=== PATIENT | female | born 2005 | race Caucasian/White ===

== ENCOUNTER → 2025-09-07 | Outpatient (CLI) | payer BC, SELFPAY ==
[2025-09-07 17:56] LABS: HCG,Qualitative Serum Negative
[2025-09-07 21:38] LABS: Alanine Aminotransferase 20 U/L (10-49); Albumin, Serum 5.3 gm/dL (3.5-5.0); Alkaline Phosphatase 59 U/L (46-116); Aspartate Amino Transferase 26 U/L (0-34); Bilirubin,Direct 0.2 mg/dL (0.0-0.3); Bilirubin,Total 0.7 mg/dL (0.3-1.2); Cardiac Risk Estimate 2.5 RATIO (3.7-5.6); Cholesterol 185 mg/dL (132-200); HDL Cholesterol 75 mg/dL (40-60); LDL Cholesterol,Calculated 97 mg/dL (0-130); Total Protein 8.3 gm/dL (5.7-8.2); Triglycerides 67 mg/dL (30-150)
== END | disposition home or self-care (01) ==
PROVIDERS: Referring Provider Physician Assistant Medical; Visit Provider Physician Assistant Medical
DX: L70.0 Acne vulgaris (principal)
CPT/HCPCS: 36415; 80061; 80076; 84703